=== PATIENT | male | born 1980 | race Caucasian/White ===

== ENCOUNTER 2017-10-26 08:03 | Day surgery (SDC) | payer OTHER ==
[~2017-10-26] VITALS: Ht 182.9 cm; Wt 115.1 kg
[~2017-10-26 08:03] MED LIST: BP MED; CARV6.25; FAMO20 PO; HYDACE10B; HYDCHL12.5; LISI20; NEBI10; Naprosyn500 MG PO; Norco 5-325 Ta1 EACH PO; Omeprazole20 M1; Percocet 5-3251 EACH PO; TRAM50
== END 2017-10-26 10:56 | disposition home or self-care (01) ==
LOC: ORSCSDS 08:03
PROVIDERS: Internal Medicine Gastroenterology
PROC: 0DBB8ZX Excision of Ileum, Via Natural or Artificial Opening Endoscopic, Diagnostic (ICD-10-PCS; principal; 2017-10-26 09:30)
PROC: 0DBK8ZX Excision of Ascending Colon, Via Natural or Artificial Opening Endoscopic, Diagnostic (ICD-10-PCS; principal; 2017-10-26 09:30)
PROC: 0DBN8ZX Excision of Sigmoid Colon, Via Natural or Artificial Opening Endoscopic, Diagnostic (ICD-10-PCS; principal; 2017-10-26 09:30)
PROC: 0DBP8ZX Excision of Rectum, Via Natural or Artificial Opening Endoscopic, Diagnostic (ICD-10-PCS; principal; 2017-10-26 09:30)
DX: K62.5 Hemorrhage of anus and rectum (principal); D12.2 Benign neoplasm of ascending colon; D12.5 Benign neoplasm of sigmoid colon; K62.1 Rectal polyp; K64.4 Residual hemorrhoidal skin tags; K64.8 Other hemorrhoids; K57.30 Diverticulosis of large intestine without perforation or abscess without bleeding; R74.0 Nonspecific elevation of levels of transaminase and lactic acid dehydrogenase [LDH]; Z87.891 Personal history of nicotine dependence; I10 Essential (primary) hypertension; Z79.899 Other long term (current) drug therapy
CPT/HCPCS: 36415; 82103; 82104; 82390; 82728; 82784; 83516; 83540; 83550; 85610; 86038; 86255; 86376; 86706; 88305; J7120

== ENCOUNTER → 2024-05-29 | Outpatient (CLI) | payer SELFPAY ==
[~2024-05-29] MED LIST changes: +AMLO10 PO; +GABA300 PO; +LOSARTAN-HCTZ1 EACH PO
[2024-05-30 16:07] LABS: Adenovirus F 40/41 Not Detected (NOT DETECT); Astrovirus Not Detected (NOT DETECT); Campylobacter Sp Not Detected (NOT DETECT); Cryptosporidium Not Detected (NOT DETECT); Cyclospora Cayetanensis Not Detected (NOT DETECT); E. Coli O157 Not Detected (NOT DETECT); Entamoeba Histolytica Not Detected (NOT DETECT); Enteroaggregative E. coli-EAEC Detected (NOT DETECT); Enteropathogenic E. coli-EPEC Not Detected (NOT DETECT); Enterotoxigenic E. coli-ETEC Not Detected (NOT DETECT); Giardia Lamblia Not Detected (NOT DETECT); Norovirus GI/GII Not Detected (NOT DETECT); Plesiomonas Shigelloides Not Detected (NOT DETECT); Rotavirus A Not Detected (NOT DETECT); Salmonella Sp Not Detected (NOT DETECT); Sapovirus Not Detected (NOT DETECT); Shiga Toxin-prod E. coli-STEC Not Detected (NOT DETECT); Shigella/Enteroin E. coli-EIEC Not Detected (NOT DETECT); Vibrio Cholerae Not Detected (NOT DETECT); Vibrio Sp Not Detected (NOT DETECT); Yersinia Enterocolitica Not Detected (NOT DETECT)
== END | disposition home or self-care (01) ==
LOC: LAB 12:49 → LAB SHORT 12:49
PROVIDERS: Nurse Practitioner
DX: K92.1 Melena (principal); R19.7 Diarrhea, unspecified
CPT/HCPCS: 87507